=== PATIENT | male | born 1955 | race Caucasian/White ===

== ENCOUNTER 2019-08-13 14:16 | Outpatient (CLI) | payer MEDICARE, OTHER, SELFPAY ==
--- NOTE | 2019-08-13 14:22 | ECG_ITS ---
Measurements Intervals [place] Rate: 70 P: 26 [place]: 173 QRS: -11 QRSD: 93 T: 43 QT: 360 QTc: 390 Interpretive Statements SINUS RHYTHM INCOMPLETE RIGHT BUNDLE BRANCH BLOCK BASELINE ARTIFACT- I, III, AVL BORDERLINE ECG Electronically Signed On 08-13-2019 14:39:36 CDT by Gautam De Los Santos D.O.
[2019-08-13 14:51] LABS: Blood Urea Nitrogen 16 mg/dL (9-20); Calcium 9.4 mg/dL (8.4-10.2); Carbon Dioxide 28 mmol/L (22-30); Chloride 103 mmol/L (98-107); Estimated Glomerular Filt Rate > 60; Glucose 173 mg/dL (75-110); Potassium 4.1 mmol/L (3.4-5.0); Sodium 140 mmol/L (137-145)
== END 2019-08-13 14:17 | disposition home or self-care (01) ==
PROVIDERS: Anesthesiology; PCP Physician Assistant Medical; Visit Provider Urology
DX: I10 Essential (primary) hypertension (principal); E11.9 Type 2 diabetes mellitus without complications; I45.10 Unspecified right bundle-branch block
CPT/HCPCS: 36415; 80048; 93005

== ENCOUNTER 2019-08-21 01:50 | Day surgery (SDC) | payer MEDICARE, OTHER, SELFPAY ==
[2019-08-07 16:16] VITALS: BMI 28.7
--- NOTE | 2019-08-21 06:51 | WPDHPUPDATE1 ---
History and Physical Update Update Date/Time: 08/21/19 06:51 History and Physical has been reviewed, including an updated exam of the patient. There are NO changes in the patient's condition. Risks, benefits, and alternatives have been discussed and questions answered. Patient agrees to proceed with procedure.
[2019-08-21 10:11] VITALS: BP 150/87; PULSE 66; RESP 18; TEMP 36.2; O2SAT 100
[2019-08-21] MEDS: LACTATED RINGERS 1,000 ML 30 ML IV CONT ×2 (10:30→13:10)
[2019-08-21 10:38] LABS: Glucose Point of Care 129 (65-105)
--- NOTE | 2019-08-21 10:59 | WPDANESEPPF ---
Anes - Initial Pre Proc Eval Procedure: Operation Date: 08/21/19 12:00 Proposed Procedures p Cystoscopy, Microplastique Injection - Alfredo Cerda MD Date/Time: 08/21/19 10:59 Surgeon: Alfredo Cerda MD Pre Op Diagnosis: Prostate Cancer/Erectile Dys Due to Arteral Dysfun Patient Data Age: 64 Gender: M Height: 5 ft 10 in Weight: 94 kg Last Vital Signs Temp 36.2 C L 08/21/19 10:11 Pulse 66 08/21/19 10:11 Resp 18 08/21/19 10:11 BP 150/87 H 08/21/19 10:11 Pulse Ox 100 08/21/19 10:11 Allergies Allergy/AdvReac Type Severity Reaction Status Date / Time No Known Allergies Allergy Unknown NONE Unverified 08/21/19 10:16 Home Medications Medication Instructions Recorded Confirmed Type aspirin 81 mg PO DAILY 08/07/19 08/21/19 History atorvastatin 1 mg PO HS 08/07/19 08/21/19 History cholecalciferol (vitamin D3) 125 mcg PO DAILY 08/07/19 08/21/19 History [Vitamin D3] losartan 100 mg PO DAILY 08/07/19 08/21/19 History meloxicam 7.5 mg PO DAILY 08/07/19 08/21/19 History metformin 500 mg PO BID 08/07/19 08/21/19 History Laboratory Tests 08/21/19 10:35 POC Capillary Glucose 129 mg/dl H mg/dl (65-105) Patient hx anesthesia problems: none Family hx anesthesia problems: none [facility] Past Medical History Medical History (Updated 08/21/19 @ 10:59 by Manan Lay MD) Diabetes Hyperlipidemia Hypertension Prostate cancer Social History Social History Smoking status: Former smoker Alcohol intake: never Gender identity (if verbalized by the patient): Male Anes - Eval Final PreProcedure Day of Procedure 08/21/19 10:59 Patient weight: overweight Heart: regular rate and rhythm Lungs: clear to auscultation Airway: Mallampati scale class II Neurological: alert and oriented Last oral intake: >/= 8 hours ASA classification: III Emergent: no Anesthetic plan: proceed Anesthesia type and monitoring: general LMA and standard monitoring Informed Consent: The patient's anesthetic plan and its attendant risks and benefits were discussed with the patient/family/POA. Questions were solicited and answers provided to the satisfaction of the patient/family/POA.
[2019-08-21] MEDS: ceFAZolin 2 GM/D5W 50 ML 2 GM/50 ML BAG IVPB (11:18)
[2019-08-21] MEDS: LIDOCAINE HCL 2% GEL UROJET 10 ML PKG MUCOUS MEM (11:28)
[2019-08-21] MEDS: KETOROLAC 30 MG/ML VIAL (*BKC) IM (11:40)
--- NOTE | 2019-08-21 11:47 | P.OP_ITS ---
Procedure Note - Detailed Date of procedure: 08/21/19 Pre-op diagnosis: Prostate Cancer/Erectile Dys Due to Arteral Dysfun Post-op diagnosis: same Procedure performed: Cystoscopy, Macroplastique injection Description of procedure: The patient was brought to the operative suite where he was prepped and draped in the routine fashion while in the dorsal lithotomy position after the uneventful administration of systemic sedation by the anesthe felisha department. 2% lidocaine jelly was introduced into the urethra and allowed to stand for an appropriate period of time. Cystoscopy was undertaken with a 19 Danish rigid cystoscope. There was no evidence of urethral stricture or bladder neck contracture and the prostate is surgically absent. The bladder mucosa was endoscopically normal without hyperemia or neoplasm. Using the Macroplastique delivery system a total of 2 vials were injected just distal to the bladder neck(1/4 delivered at the 3:00 and 9:00 position / ? delivered at the 6:00 position). After each injection the the needle is not withdrawn from the tissue for 15-seconds, allowing time for the agent to solidify. At the termination of the procedure there was good circumferential coaptation of the proximal urethra. After removal of the cystoscope the bladder was drained with a []F red rubber catheter. The patient tolerated the procedure well and was taken to the outpatient recovery room in good condition. Anesthesia: GLMA Surgeon: Alfredo Cerda MD Estimated blood loss (mL): 0 Drains: No Packing: No Pathology: none sent Complications: No immediate complications Condition: stable Disposition: PACU
[2019-08-21 11:52] VITALS: BP 117/71; PULSE 79; RESP 20; O2SAT 97
[2019-08-21 12:14] LABS: Glucose Point of Care 118 (65-105)
[2019-08-21 12:20] VITALS: BP 139/73; PULSE 64; RESP 14
[2019-08-21 12:50] VITALS: BP 153/74; PULSE 55; RESP 14
--- NOTE | 2019-08-21 12:57 | SUR.PHASEII ---
1200 drinking fluids and iv fluids continue,with pt required to urinate prior to discharge.
[2019-08-21 13:20] VITALS: BP 155/77; PULSE 55; RESP 14
[2019-08-21 13:40] VITALS: BP 158/74; PULSE 54; RESP 14
== END 2019-08-21 13:55 | disposition home or self-care (01) ==
PROVIDERS: PCP Physician Assistant Medical; Visit Provider Urology
PROC: 3E0K8GC Introduction of Other Therapeutic Substance into Genitourinary Tract, Via Natural or Artificial Opening Endoscopic (ICD-10-PCS; CPT 52287; principal; 2019-08-21 12:00)
DX: N36.42 Intrinsic sphincter deficiency (ISD) (principal); N52.01 Erectile dysfunction due to arterial insufficiency; N39.3 Stress incontinence (female) (male); Z85.46 Personal history of malignant neoplasm of prostate; I11.9 Hypertensive heart disease without heart failure; E11.9 Type 2 diabetes mellitus without complications; Z86.73 Personal history of transient ischemic attack (TIA), and cerebral infarction without residual deficits; Z79.84 Long term (current) use of oral hypoglycemic drugs; Z79.82 Long term (current) use of aspirin; Z87.891 Personal history of nicotine dependence; Z90.79 Acquired absence of other genital organ(s)
CPT/HCPCS: 51715; A9270; J0690; J1100; J1885; J2250; J2405; J2704; J3010; J7120; L8606

== ENCOUNTER 2020-07-09 09:00 | Outpatient (CLI) | payer MEDICARE, OTHER, SELFPAY ==
[2020-07-09 09:58] LABS: Anion Gap 9 mmol/L (8-16); Blood Urea Nitrogen 17 mg/dL (9-20); Calcium 9.7 mg/dL (8.4-10.2); Carbon Dioxide 29 mmol/L (22-30); Chloride 103 mmol/L (98-107); Estimated Glomerular Filt Rate > 60; Glucose 178 mg/dL (75-110); Potassium 4.1 mmol/L (3.4-5.0); Sodium 141 mmol/L (137-145)
== END 2020-07-09 09:01 | disposition home or self-care (01) ==
LOC: ANHSURGERY 09:05
PROVIDERS: Anesthesiology; PCP Physician Assistant Medical; Visit Provider Urology
DX: E11.9 Type 2 diabetes mellitus without complications (principal); N39.3 Stress incontinence (female) (male); Z01.818 Encounter for other preprocedural examination
CPT/HCPCS: 36415; 80048; 87086

== ENCOUNTER → 2020-07-17 00:21 | Outpatient (CLI) | payer MEDICARE, OTHER, SELFPAY ==
[2020-07-17 19:49] LABS: SARS-CoV-2 RNA PCR Negative
== END ==
PROVIDERS: PCP Physician Assistant Medical; Visit Provider Urology
DX: Z01.812 Encounter for preprocedural laboratory examination (principal); Z20.822 Contact with and (suspected) exposure to COVID-19
CPT/HCPCS: C9803; U0003; U0005

== ENCOUNTER 2020-07-21 01:29 | Day surgery (SDC) | payer MEDICARE, OTHER, SELFPAY ==
[2020-07-07 08:43] VITALS: BMI 29.7
[2020-07-21] VITALS (10 sets, daily range): BP systolic 110–144; BP diastolic 69–88; PULSE 64–87; RESP 12–18; TEMP 35.9–36.5; O2SAT 99–100
[2020-07-21] MEDS: LACTATED RINGERS 1,000 ML 30 ML IV CONT ×2 (10:10→14:50)
[2020-07-21] MEDS: GENTAMICIN SULFATE INJ 470 MG in DEXTROSE 5% 100 ML 100 MG IVPB (10:10)
[2020-07-21 10:27] LABS: Glucose Point of Care 137 (65-105)
[2020-07-21 10:36] LABS: Hemoglobin A1C 6.9 % (<5.7)
[2020-07-21] MEDS: metroNIDAZOLE 500 MG/ISO 100ML 500 MG/100 ML BAG 100 MG IVPB (10:49)
--- NOTE | 2020-07-21 10:55 | WPDANESEPPF ---
Anes - Initial Pre Proc Eval Procedure: Operation Date: 07/21/20 12:00 Proposed Procedures p Transobturator Male Sling - Neo Laguerre MD Date/Time: 07/21/20 10:55 Surgeon: Neo Laguerre MD Pre Op Diagnosis: Stress Incontinence Patient Data Age: 65 Gender: M Height: 5 ft 10 in Weight: 94 kg Allergies Allergy/AdvReac Type Severity Reaction Status Date / Time No Known Allergies Allergy Unknown NONE Unverified 07/07/20 08:37 Home Medications Medication Instructions Recorded Confirmed Type atorvastatin 20 mg PO HS 08/07/19 07/07/20 History cholecalciferol (vitamin D3) 125 mcg PO DAILY 08/07/19 07/07/20 History [Vitamin D3] losartan 100 mg PO QAM 08/07/19 07/07/20 History meloxicam 7.5 mg PO QAM 08/07/19 07/07/20 History metformin 500 mg PO BID 08/07/19 07/07/20 History aspirin [Adult Aspirin EC Low 81 mg PO DAILY 07/07/20 07/07/20 History Strength] zinc 50 mg PO DAILY 07/07/20 07/07/20 History Laboratory Tests 07/21/20 07/21/20 10:16 10:20 POC Capillary Glucose 137 mg/dl H mg/dl (65-105) Hemoglobin A1c 6.9 % H % (<5.7) Patient hx anesthesia problems: none Family hx anesthesia problems: none PMFSH Past Medical History Medical History (Updated 08/21/19 @ 10:59 by Manan Lay MD) Diabetes Hyperlipidemia Hypertension Prostate cancer Social History Social History Smoking packs per day: 0.34 Smoking cigarettes per day: 6.8 Years smoked: 10 Smoking pack-years: 3.40 Smoking status: Former smoker Tobacco type: cigarettes Smoking end date: 12/02/86 Alcohol intake: never Alcohol use details: 3-4 BEERS/MONTH Substance use: never Living arrangements: with family Additional living arrangements comments: Gender identity (if verbalized by the patient): Male Spiritual care concerns: No Anes - Eval Final PreProcedure Day of Procedure 07/21/20 10:55 Patient weight: overweight Heart: regular rate and rhythm Lungs: clear to auscultation Airway: Mallampati scale class II Neurological: alert and oriented Last oral intake: >/= 8 hours ASA classification: III Emergent: no Anesthetic plan: proceed Anesthesia type and monitoring: general LMA and standard monitoring Informed Consent: The patient's anesthetic plan and its attendant risks and benefits were discussed with the patient/family/POA. Questions were solicited and answers provided to the satisfaction of the patient/family/POA.
--- NOTE | 2020-07-21 12:23 | WPDHPUPDATE1 ---
History and Physical Update Update Date/Time: 07/21/20 12:23 History and Physical has been reviewed, including an updated exam of the patient. There are NO changes in the patient's condition. Risks, benefits, and alternatives have been discussed and questions answered. Patient agrees to proceed with procedure.
[2020-07-21 14:57] LABS: Glucose Point of Care 135 (65-105)
--- NOTE | 2020-07-21 15:03 | PM.PROC ---
Procedure Note - Detailed Date of procedure: 07/21/20 Pre-op diagnosis: Stress Incontinence Post-op diagnosis: same Procedure performed: Placement of advance XP male sling, cystoscopy Description of procedure: Informed consent was obtained. Patient taken the operating room. Given preoperative IV antibiotics. He was induced with anesthesia. He was shaved. He was prepped with Betadine followed by ChloraPrep. We placed a 16 F Marr catheter with return of clear urine. We then made a 3cm incision in the perineum. We dissected down and identified the bulbar spongiosis muscle. The muscle was opened sharply and carefully from the urethra. We then mobilized the urethra. We identified the central tendon. The tendon was cut allowing for approximately 2cm of additional urethral mobilization. At this point we used the advanced trocar passers to place the sling through the obturator foramen. Good positioning was noted. We secured the mesh to the spongiosum with 3 O Vicryl sutures attaching the proximal end to the area of dissection of the central tendon. The Marr catheter was then removed. Cystoscopy was performed and showed no injury to the bladder or urethra. At this point we tensioned the sling wall keeping the scope in place to cystoscopically see compression. The sling sat nicely. A 12 F Marr catheter was then inserted. We irrigated copiously. We closed the bulbous spongiosis muscle with 2 0 Vicryl suture. Then tunneled the sling into the perineal incision. We performed multiple layer closure with 3 0 Vicryl suture followed by 3 0 Vicryl horizontal mattress closure. We reapproximated the stab incisions for trocar placement with 4 0 Monocryl suture. Dermabond was placed over all incisions a compressive dressing was placed and patient was awakened taken recovery stable condition. Anesthesia: GLMA Surgeon: Neo Laguerre MD Drains: No Packing: No Pathology: none sent Complications: No immediate complications Condition: stable Disposition: PACU
[2020-07-21] MEDS: oxyCODONE HCL (*CRX) 5 MG TAB IR PO (16:13)
--- NOTE | 2020-07-21 17:45 | SUR.PHASEII ---
1730 PT MEETS ANESTHESIA DISCHARGE CRITERIA. PT DRESSED. PT STATES HE WANTS TO BE ADMITTED OVERNIGHT AND STATES DR KAMINSKI GAVE HIM THAT OPTION. [address] KAMINSKI PER PHONE- AWARE PT WANTS TO BE ADMITTED. DR KAMINSKI WOULD LIKE FOR PT TO GO HOME IF POSSIBLE. INSTRUCTED TO WATCH PT 20 MORE MIN. AND CALL BACK IF PT INSISTS ON BEING ADMITTED.
--- NOTE | 2020-07-21 18:13 | SUR.PHASEII ---
1809 PT STATES HE WILL GO HOME. INSTRUCTED PT & SPOUSE TO CALL DR KAMINSKI'S OFFICE WITH ANY ISSUES.
== END 2020-07-21 18:13 | disposition home or self-care (01) ==
PROVIDERS: PCP Physician Assistant Medical; Visit Provider Urology
PROC: (CPT 53440; principal; 2020-07-21 12:00)
DX: N39.3 Stress incontinence (female) (male) (principal); I10 Essential (primary) hypertension; E78.5 Hyperlipidemia, unspecified; E11.9 Type 2 diabetes mellitus without complications; Z85.46 Personal history of malignant neoplasm of prostate; Z79.84 Long term (current) use of oral hypoglycemic drugs; Z79.82 Long term (current) use of aspirin; Z87.891 Personal history of nicotine dependence
CPT/HCPCS: 53440; 36415; 82948; 83036; A9270; C1771; J1580; J1940; J2250; J2405; J2704; J3010; J3370; J7030; J7120

== ENCOUNTER 2023-06-11 11:26 | Outpatient (CLI) | payer OTHER, SELFPAY ==
--- NOTE | ~2023-06-11 | PE_ITS ---
EXAMINATION: PET_PETPSMAST_PT DATE: 06/11/2023 14:12 INDICATION: Prostate cancer TECHNIQUE: 9.033 mCi of pipflufolastat F-18 (18-F-DCFPyL) was administered i.v. Low dose computed to mography (CT) images were acquired from the base of the brain to the base of the brain to the proxima l thighs for attenuation correction and anatomic localization. Positron emission tomography (PET) ilda ges were acquired in the same distribution beginning 98 minutes after injection. Images including fus ed PET/CT images were reconstructed in axial, coronal, and sagittal planes. Automated exposure contro l technique was employed. The dose-length product was 920.56mGy-cm. COMPARISON: None FINDINGS: Head/neck: Typical pattern of symmetric physiologic increased activity in the lacrimal, parotid and submandibula r glands as well as along the mucosa of the nasal and oral cavities, the javed-, naso- and hypopharynx, the glottis and esophagus. There is also a typical pattern of symmetric tiny foci of mild likely phy siologic neural ganglia uptake at a few bilateral cervical neural foramina. No pathologically enlarge d cervical lymphadenopathy or suspicious foci of increased uptake in the visualized head or neck. Chest: There is metallic streak artifact most prominent at the left upper chest/with a reverse left total sh oulder arthroplasty. No suspicious pulmonary nodules, pneumonia, pulmonary edema or other pulmonary i nfiltrates. Heart size is normal. Atherosclerotic coronary artery calcification. No pericardial or pl eural effusion. Thoracic aorta is normal in caliber. Calcified right hilar lymph nodes consistent wit h old granulomatous disease. No pathologically enlarged or PSMA avid thoracic lymphadenopathy. Abdomen/pelvis/proximal thighs: Physiologic renal accumulation and excretion of activity in the kidneys, bladder and along portions o f ureters. Status post prostatomegaly. Small focus of likely urine contamination at the glans of the penis. Normal degree and slightly heterogenous pattern of increased uptake throughout the liver, sple en and adjacent small splenule without radiologic correlate or dominant PSMA avid lesion. The gallbla dder, pancreas and bilateral adrenal glands are normal. Moderate uptake scattered throughout the edgardo ls with typical duodenal and proximal jejunal predominance and without radiologic correlate, also lik denny physiologic. There is mild to moderate colonic diverticulosis with a sigmoid and descending colon predominance. There is no adjacent inflammatory change to suggest diverticulitis. Normal appendix. No other abnormal foci of increased uptake or pathologically enlarged lymphadenopathy in the abdomen, pelvis or proximal thighs. There is additional streak artifact in the caudal pelvis associated with bilateral total hip arthroplasties. Musculoskeletal: Severe cervical and lumbar spondylosis. No suspicious lytic, blastic or PSMA avid bone lesions. IMPRESSION: 1. No PSMA avid lesions suspicious for metastatic disease. Reviewed, dictated and finalized at location A. NTORY ASSOCIATE AND DRIVER
== END 2023-06-11 11:27 | disposition home or self-care (01) ==
PROVIDERS: PCP Physician Assistant Medical; Visit Provider Urology
DX: C61 Malignant neoplasm of prostate (principal)
CPT/HCPCS: 78815; A9595

== ENCOUNTER 2025-03-05 13:19 | Outpatient (CLI) | payer OTHER, SELFPAY ==
--- NOTE | ~2025-03-05 | PE_ITS ---
EXAMINATION: PET_PETPSMAST_PT DATE: 03/05/2025 15:59 INDICATION: Prostate cancer TECHNIQUE: 4.113 mCi of Illucix Ga-68([id number]) was administered i.v. Low dose computed tomography (CT) images were acquired from the base of the brain to the base of the brain to the proximal thighs for attenuation correction and anatomic localization. Positron emission tomography (PET) images were acquired in the same distribution beginning 69 minutes after injection. Images including fused PET/CT images were reconstructed in axial, coronal, and sagittal planes. Automated exposure control technique was employed. The dose-length product was 1163.14mGy-cm. COMPARISON: 06/11/2023 FINDINGS: Head/neck: Typical pattern of symmetric physiologic increased activity in the lacrimal, parotid and submandibular glands as well as along the mucosa of the nasal and oral cavities, pharynx and hypopharynx. No pathologically enlarged cervical lymphadenopathy or suspicious foci of increased uptake in the visualized head or neck. Chest: Mild dependent atelectasis in bilateral lower lobes. Calcified right hilar and infrahilar lymph nodes consistent with old granulomatous disease. No suspicious pulmonary nodules, pneumonia, pulmonary edema or pleural effusion. Heart size is normal. Atherosclerotic coronary artery calcification. No pericardial effusion. Thoracic aorta is normal in caliber. No pathologically enlarged or PSMA avid thoracic lymphadenopathy. Abdomen/pelvis/proximal thighs: Physiologic renal accumulation and excretion of activity in the kidneys, bladder and along portions of ureters. Tapered contour to the excreted urine activity at the base of the bladder consistent with prior prostatectomy. Regions however obscured on the CT images by dense metallic streak artifact from bilateral total hip arthroplasties. Normal degree and slightly heterogenous pattern of increased uptake throughout the liver and spleen without radiologic correlate or dominant PSMA avid lesion. Additional mild uptake with a small splenule positioned anterior to the inferior spleen. A few splenic calcifications consistent with old granulomatous disease. The gallbladder, pancreas and bilateral adrenal glands are normal. Moderate uptake scattered throughout the bowels with typical duodenal and proximal jejunal predominance and without radiologic correlate, also likely physiologic. Moderate colonic diverticulosis without adjacent inflammatory stranding to suggest diverticulitis. Normal appendix. No other abnormal foci of increased uptake or pathologically enlarged lymphadenopathy in the abdomen, pelvis or proximal thighs. Musculoskeletal: Reverse left total shoulder arthroplasty. There are suture anchors at the right humeral head consistent with prior rotator cuff repair. There is however cephalad subluxation of the humeral head with narrowing of the subacromial space and along the undersurface of the acromion suspicious for recurrent rotator cuff tear. There is also a metallic anchor underlying the anterior cortex of the proximal right humeral diaphysis consistent with prior bicipital tenodesis. Moderate to severe spondylosis the cervical, thoracic and lumbar spine. No suspicious lytic, blastic or abnormally PSMA avid bone lesions. IMPRESSION: 1. No PSMA avid lesions suspicious for metastatic disease. Reviewed, dictated and finalized at location A.
--- OUTSIDE RECORDS SUMMARY | 2025-03-05 13:24 | XMS_ITS | Clinical Summary ---
Author Organization [facility] Address [address] [place] [id number] Care Team Providers Care Exploration Driller Name Role Phone Meaghan Tavera Primary Care Provider [phone]- [phone] Allergies No known active allergies Medications atorvastatin (LIPITOR) 20 mg tabletIndicatio ns:hyperlipidem ia Take 20 mg by mouth nightly. at bedtime. 1 11/08/2017 Active losartan (COZAAR) 100 mg tabletIndicatio ns:hypertension Take 100 mg by mouth every morning 1 12/10/2017 Active metFORMIN XR (GLUCOPHAGE XR) 500 mg 24 hr tabletIndicatio ns:type 2 diabetes mellitus Take by mouth 2 (two) times a day 500mg in am and 1000mg in pm 1 12/10/2017 Active cholecalciferol (VITAMIN D3) 5,000 unit tabletIndicatio ns:Prevention of Vitamin D Deficiency Take 5,000 Units by mouth every morning. Active acetaminophen (TYLENOL) 325 mg tabletIndicatio ns:Pain Take 2 tablets (650 mg total) by mouth every 6 (six) hours as needed for pain. 100 tablet 1 05/23/2018 Active aspirin 81 mg enteric coated tabletIndicatio ns:last dose 7 days ago Take 81 mg by mouth every morning Active cyanocobalamin, vitamin B-12, (VITAMIN B-12 ORAL)Indication s:supplement Take 1 tablet by mouth daily as needed Active oxyCODONE (ROXICODONE) 5 mg immediate release tabletIndicatio ns:Pain TAKE ONE TO TWO TABLETS EVERY 4 TO 6 HOURS PRN PAIN 40 tablet 05/11/2021 Active Active Problems Problem Noted Date Diagnosed Date Hypertension 05/22/2018 Hyperlipidemia 05/22/2018 Type 2 diabetes mellitus 05/22/2018 Risk factors for obstructive sleep apnea 018 Complete tear of left rotator cuff 03/18/2018 Overview (03/18/2018): Added automatically from request for surgery [id number] Acute post-operative pain S/P reverse total shoulder arthroplasty, left Surgical History Surgery Date Site/Laterality Comments TOTAL HIP ARTHROPLASTY 2006, 2007 Bilateral 2007- right; 2008- left PROSTATE BIOPSY 06/04/2017 - 06/03/2018 RADICAL PROSTATECTOMY 07/05/2017 with bilateral pelvic lymph node dissection COLONOSCOPY EXCISION / REPAIR HYDROCELE PEDIATRIC 1959' BASAL CELL CARCINOMA EXCISION 2009' left side of nose TOTAL SHOULDER REPLACEMENT 06/04/2017 - 06/03/2018 Left Medical History Medical History Date Comments Type 2 diabetes mellitus Urinary tract infection Cancer (HCC) prostate cancer jul 2017 Family History Medical History Relation Name Comments Heart attack Father Stroke Mother Anesthesia problems Neg Hx Relation Name Status Comments Father Mother Social History Tobacco Use Types Packs/Day Years Used Date Smoking Tobacco: Former Cigarettes 1 1 964 - 1986 Smokeless Tobacco: Never Alcohol Use Standard Drinks/Week Comments No 0 (1 standard drink = 0.6 oz pur e alcohol) AUDIT-C Answer Date Recorded Q1: How often do you have a drink containing alc ohol? 2-3 times a week 05/13/2021 Q2: How many drinks containi ng alcohol do you have on a typical day when you are drinking? 3 or 4 05/13/2021 Q3: How often do you have si x or more drinks on one occasion? Less than monthly 05/13/2021 Sex and Gender Information Value Date Recorded Sex Assigned at Not on file Legal Sex Male 9:59 AM CDT Gender Identity Male 01/01/2018 10:02 AM CDT Sexual Orientation Not on file Obstetrics History Last Filed Vital Signs Vital Sign Reading Time Taken Comments Blood Pressure 138/77 05/13/2021 4:50 PM GSA COORDINATOR Pulse 77 05/13/2021 4:55 PM GSA COORDINATOR Temperature 36.5 C (97.7 F) 05/13/2021 4:50 PM GSA COORDINATOR Respiratory Rate 16 05/13/2021 4:55 PM GSA COORDINATOR Oxygen Saturation 100% 05/13/2021 4:50 PM GSA COORDINATOR Inhaled Oxygen Concentration - - Weight 94.3 kg (208 lb) 05/13/2021 9:45 AM GSA COORDINATOR Height 177.8 cm (5' 10) 05/13/2021 9:45 AM GSA COORDINATOR Body Mass Index 29.84 05/13/2021 9:45 AM GSA COORDINATOR Plan of Treatment Not on file Medical Devices Implanted Type Area Marketing Researcher Device Identifier Shelf Expiration Date Model / Serial / Lot Joint Bilateral: Hip [employer] [id number] 25mm Reverse Shoulder Baseplate Glenoid Trabecular Metal - [id number] Implanted:Qty: 1 on 05/23/2018 by Yinka Beebe MD at [facility] Left: Shoulder [employer] [id number] 05/03/2028 [id number] / / [id number] [employer] [id number] Ncb Anatomical Shoulder 4.5mm 42mm Inverse Reverse Lock Self Tap - [id number] Implanted:Qty: 1 on 05/23/2018 by Yinka Beebe MD at [facility] Left: Shoulder [employer] [id number] 12/01/2022 [id number] / / [id number] [employer] [id number] Ncb Anatomical Shoulder 4.5mm 42mm Inverse Reverse Lock Self Tap - [id number] Implanted:Qty: 1 on 05/23/2018 by Yinka Beebe MD at [facility] Left: Shoulder [employer] [id number] 12/01/2022 [id number] / / [id number] [employer] [id number] 40mm Reverse Shoulder Sphere Glenoid Trabecular Metal - [id number] Implanted:Qty: 1 on 05/23/2018 by Yinka Beebe MD at [facility] Left: Shoulder [employer] [id number] 02/02/2028 [id number] / / [id number] [employer] [id number] 12mm 130mm Shoulder Stem Humeral Trabecular Metal Tivanium - [id number] Implanted:Qty: 1 on 05/23/2018 by Yinka Beebe MD at [facility] Left: Shoulder [employer] [id number] 05/03/2028 [id number] / / [id number] [employer] [id number] 40mm H+0mm Reverse Humerus 7d Standard Liner Shoulder Trabecular - [id number] Implanted:Qty: 1 on 05/23/2018 by Yinka Beebe MD at [facility] Left: Shoulder [employer] [id number] 05/03/2026 [id number] / / [id number] [employer] Ar-2324 Bcm Swivelock 4.75mm 24.5mm Self Punch Vent Shoulder Saco Suture - [id number] Implanted:Qty: 1 on 05/13/2021 by Yinka Beebe MD at [facility] Right: Shoulder [employer] 08/01/2024 AR-[id number] / / [id number] [employer] Ar-2324 Bcm Swivelock 4.75mm 24.5mm Self Punch Vent Shoulder Saco Suture - [id number] Implanted:Qty: 1 on 05/13/2021 by Yinka Beebe MD at [facility] Right: Shoulder [employer] 08/01/2024 AR-[id number] / / [id number] [employer] Ar-2290 Fiberloop 3.2mm Drill Pin Needle Shoehorn Cannula Kit Suture - [id number] Implanted:Qty: 1 on 05/13/2021 by Yinka Beebe MD at [facility] Right: Shoulder [employer] 11/01/2025 AR-2290 / / [id number] [employer] Ar-1927bct Corkscrew Suturetape 5.5mm 14.7mm Bioabsorbable Full Thread 1.3mm - [id number] Implanted:Qty: 1 on 05/13/2021 by Yinka Beebe MD at [facility] Right: Shoulder [employer] 12/01/2022 AR-[id number] / / [id number] [employer] Ar-1927bct Corkscrew Suturetape 5.5mm 14.7mm Bioabsorbable Full Thread 1.3mm - [id number] Implanted:Qty: 1 on 05/13/2021 by Yinka Beebe MD at [facility] Right: Shoulder [employer] 12/01/2022 AR-[id number] / / [id number] Explanted Type Area Marketing Researcher Device Identifier Shelf Expiration Date Model / Serial / Lot [employer] [id number] Gorge 3/32in 9in 2 Trocar Pin Fixation Nonsterile - [id number] Explanted:Qty: 1 on 05/23/2018 at [facility] Pin Left: Shoulder [employer] [id number] S / / Insurance [address] [place] [address] MEDICARE [facility] [address] [place] [address] [place] [address] [employer]URI WERNER Advance Directives For more information, please contact: [phone] * Full Code (Latest Code Status on File) Date Activated Date Inactivated Comments 05/23/2018 11:08 AM 05/25/2018 4:00 PM Care Teams Exploration Driller Relationship Specialty Start Date End Date Meaghan Tavera PA [address] [place] [id number] PCP - General 03/16/21
--- OUTSIDE RECORDS SUMMARY | 2025-03-05 13:24 | XMS_ITS | Clinical Summary ---
Author Organization [facility] Address [address] [place] [id number] Care Team Providers Care Accordion Maker Name Role Phone Meaghan Tavera Primary Care Provider [phone] Allergies No known active allergies Medications cephALEXin (KEFLEX) 500 MG capsule Take 1 capsule (500 mg total) by mouth 4 (four) times daily for 7 days. 28 capsule 02/06/2025 02/14/20 25 Encounters Date Type Department Care Team Description 02/07/2025 - 02/07/2025 10:17 AM CDT Emergency [facility] Emergency Room [id number] [place] [id number] Discharge Disposition: ED Dismiss - Never Arrived 02/06/2025 2:42 PM CDT - 02/06/2025 4:48 PM CDT Emergency [facility] Emergency Room [address] [place] [id number] Corey Ahn DO Laceration Discharge Disposition: Home or Self Care (Routine Discharge) 02/06/2025 Travel from Last 3 Months Social History Tobacco Use Types Packs/Day Years Used Date Smoking Tobacco: Never Assessed Sex and Gender Information Value Date Recorded Sex Assigned at Male 09/17/2023 7:58 AM CDT Legal Sex Male 7:22 PM CDT Gender Identity Male 09/17/2023 7:58 AM CDT Sexual Orientation Choose not to disclose 2023 7:58 AM CDT Last Filed Vital Signs Vital Sign Reading Time Taken Comments Blood Pressure 150/76 02/06/2025 2:45 PM CDT Pulse 74 02/06/2025 2:45 PM CDT Temperature 36.3 C (97.4 F) 02/06/2025 2:45 PM CDT Respiratory Rate 16 02/06/2025 2:45 PM CDT Oxygen Saturation 98% 02/06/2025 2:45 PM CDT Inhaled Oxygen Concentration - - Weight 90.7 kg (200 lb) 02/06/2025 2:45 PM CDT Height 177.8 cm (5' 10) 02/06/2025 2:45 PM CDT Body Mass Index 28.7 02/06/2025 2:45 PM CDT Plan of Treatment Health Maintenance Due Date Last Done Comments Colorectal Cancer Screening Colonoscopy (10 Years) 1955 Hepatitis C 01/08/1972 DTaP, Tdap and Td Vaccines ( 1 - Tdap) 1973 Pneumococcal Vaccine: 50+ Years (1 of 1 - PCV) 01/08/2004 Zoster Vaccines (1 of 2) 01/08/2004 Annual Medicare Wellness Visit 2019 COVID-19 Vaccine (3 - 2024-2 6 season) 2025 09/06/2020, 08/16/2020 RSV Immunization or 60+ Years (1 - 1-dose 75+ series) 2029 Meningococcal B Vaccine Aged Out No l onger eligible based on patient's age to complete this topic Meningococcal Vaccine Aged Out No mandy zach eligible based on patient's age to complete this topic RSV Immunizations Under 20 Months Aged Out No longer eligible b ased on patient's age to complete this topic Procedures Procedure Name Priority Date/Time Associated Diagnosis Comments LACERATION REPAIR Routine 02/06/2025 3:4 8 PM CDT XR HAND LT 3V STAT 02/06/2025 3:00 PM CDT from Last 3 Months Results * Lac Repair (02/06/2025 3:48 PM CDT) Corey Vaughn DO - 02/06/2025 3:48 PM CDT Corey Ahn DO 02/06/2025 3:51 PM Lac Repair Date/Time: 02/06/2025 3:48 PM Performed by: Corey Ahn DO Authorized by: Corey Ahn DO Consent: Consent obtained: Verbal Consent given by: Patient Risks, benefits, and alternatives were discussed: yes Risks discussed: Infection, pain, retained foreign body, need for additional repair and poor cosmetic result Alternatives discussed: No treatment [place] protocol: Procedure explained and questions answered to patient or proxy's satisfaction: yes Relevant documents present and verified: yes Test results available: yes Imaging studies available: yes Patient identity confirmed: Verbally with patient Anesthesia: Anesthesia method: Local infiltration Local anesthetic: Lidocaine 1% w/o epi Laceration details: Location: Finger Finger location: L long finger Length (cm): 3 Depth (mm): 1 Pre-procedure details: Preparation: Patient was prepped and draped in usual sterile fashion and imaging obtained to evaluate for foreign bodies Exploration: Hemostasis achieved with: Direct pressure Imaging obtained: x-ray Imaging outcome: foreign body not noted Wound exploration: wound explored through full range of motion and entire depth of wound visualized Wound extent: no foreign bodies/material noted, no tendon damage noted, no underlying fracture noted and no vascular damage noted Treatment: Amount of cleaning: Standard Irrigation solution: Sterile saline Irrigation volume: Soaking Visualized foreign bodies/material removed: no Debridement: None Skin repair: Repair method: Sutures Suture size: 5-0 Suture material: Nylon Suture technique: Simple interrupted Number of sutures: 7 Approximation: Approximation: Close Repair type: Repair type: Simple Post-procedure details: Dressing: Non-adherent dressing Procedure completion: Tolerated well, no immediate complications Comments: Laceration ended up being essentially Y shaped involving the dorsal, medial and slightly on the flexor surface of the distal left middle finger. Corey Ahn DO PROCEDURE/MINOR SURGICAL ORDER KIRSTIN Final Result * XR HAND LT 3V (02/06/2025 3:00 PM CDT) Anatomical Region Laterality Modality Hand Radiographic Michelle ging 02/06/2025 3:34 PM CDT Impressions 02/06/2025 3:39 PM CDT IMPRESSION: 1. No acute fracture or dislocation. 2. Probable laceration site along the ulnar side of the middle finger adjacent to the distal interphalangeal joint. 3. Additional radial and dorsal swelling of the distal middle finger of indeterminate acuity/chronicity. Correlation with exam recommended. 4. Marked osteophyte formation at the third metacarpophalangeal joint with slight ventral subluxation of the proximal third phalanx, favored to be chronic. Additional posttraumatic and degenerative changes as above. Referred By: Interpreted By: Johnnie Mckeon MD, 02/06/2025 3:34 PM Narrative 02/06/2025 3:39 PM CDT [facility] [address] [place] [address] EXAM: Left hand, 3 views INDICATION: Laceration of the third digit COMPARISON: None FINDINGS: No acute fracture is identified. Probable laceration site is seen along the ulnar side of the middle finger adjacent to the distal interphalangeal joint, but there is some additional radial and dorsal swelling of the distal middle finger of indeterminate acuity/chronicity. Marked osteophyte formation is noted at the third metacarpophalangeal joint, and there is also slight ventral subluxation of the proximal third phalanx, favored to be chronic. There is also prominent osteophyte formation of the middle finger distal interphalangeal joint. There is an old fracture versus capsular injury of the ring finger proximal phalanx at the proximal interphalangeal joint. Probable old fracture of the middle finger middle phalanx is also noted. There is an old ulnar styloid process fracture. Procedure Note Johnnie Mckeon MD - 02/06/2025 [facility] [address] [place] [id number] EXAM: Left hand, 3 views INDICATION: Laceration of the third digit COMPARISON: None FINDINGS: No acute fracture is identified. Probable laceration site isseen along the ulnar side of the middle finger adjacent to the distalinterphalangeal joint, but there is some additional radial and dorsalswelling of the distal middle finger of indeterminate acuity/chronicity.Marked osteophyte formation is noted at the third metacarpophalangealjoint, and there is also slight ventral subluxation of the proximal thirdphalanx, favored to be chronic. There is also prominent osteophyteformation of the middle finger distal interphalangeal joint. There is anold fracture versus capsular injury of the ring finger proximal phalanx atthe proximal interphalangeal joint. Probable old fracture of the middlefinger middle phalanx is also noted. There is an old ulnar styloidprocess fracture. IMPRESSION: 1. No acute fracture or dislocation. 2. Probable laceration site along the ulnar side of the middle fingeradjacent to the distal interphalangeal joint. 3. Additional radial and dorsal swelling of the distal middle finger ofindeterminate acuity/chronicity. Correlation with exam recommended. 4. Marked osteophyte formation at the third metacarpophalangeal jointwith slight ventral subluxation of the proximal third phalanx, favored justin chronic. Additional posttraumatic and degenerative changes as above. Referred By: Interpreted By: Johnnie Mckeon MD, 02/06/2025 3:34 PM Corey Ahn DO GENERAL IMAGING Final Result from Last 3 Months Insurance [employer] Care Teams Accordion Maker Relationship Specialty Start Date End Date Meaghan Tavera PA PCP - General PHYSICIAN [facility] 11/16/20
== END 2025-03-05 13:20 | disposition home or self-care (01) ==
PROVIDERS: PCP Physician Assistant Medical; Visit Provider Urology
DX: C61 Malignant neoplasm of prostate (principal)
CPT/HCPCS: 78815; A9596